=== PATIENT | male | born 1960 | race Two or more races ===

== ENCOUNTER 2017-02-27 20:53 | Emergency (ER) | payer MEDICAID, OTHER ==
[~2017-02-27] VITALS: Ht 165.1 cm; Wt 68.0 kg
--- NOTE | 2017-02-27 21:12 | Emergency Room Report ---
History of Present Illness General Chief Complaint: Abdominal Pain Source: Patient Present Illness HPI This is a 56-year-old male with no past medical history. He presents with chief complaint of left lower quadrant/left flank pain the last 5 days. Radiating from the back to the front. No nausea no vomiting. Pain is 7/10. Nothing made it better. Nothing made it worse. He felt some discomfort and distention in his left side. Denies any urinary complaint. Allergies: Coded Allergies: No Known Allergies (Unverified , 02/27/17) Patient History Past Medical History: none, see triage record, old chart reviewed Past Surgical History: none Pertinent Family History: none Social History: Denies: smoking Immunizations: other Reviewed Nursing Documentation: PMH: Agreed, PSxH: Agreed Nursing Documentation-PMH Past Medical History: No Stated History Review of Systems Eye: Denies: eye pain, blurred vision ENT: Denies: ear pain, nose congestion, throat swelling Respiratory: Denies: cough, shortness of breath Cardiovascular: Denies: chest pain, palpitations Gastrointestinal: Reports: abdominal pain, Denies: diarrhea, nausea, vomiting Musculoskeletal: Denies: back pain, joint pain Skin: Denies: rash Neurological: Denies: headache, numbness Endocrine: Denies: increased thirst, increased urine Hematologic/Lymphatic: Denies: easy bruising All Other Systems: negative except mentioned in HPI Physical Exam Vital Signs Date Time Temp Pulse Resp B/P (MAP) Pulse Ox O2 Delivery O2 Flow Rate FiO2 02/27/17 20:56 97.9 109 16 187/92 97 Room Air vitals with high blood pressure Sp02 EP Interpretation: reviewed, normal General Appearance: well appearing, no apparent distress, alert Head: normocephalic, atraumatic Eyes: bilateral eye PERRL, bilateral eye EOMI ENT: hearing grossly normal, normal pharynx Neck: full range of motion, supple, no meningismus Respiratory: chest non-tender, lungs clear, normal breath sounds Cardiovascular #1: regular rate, rhythm, no murmur Gastrointestinal: normal bowel sounds, non tender, no mass, no organomegaly, no bruit, non-distended Musculoskeletal: back normal, gait/station normal, normal range of motion Psychiatric: mood/affect normal Skin: warm/dry Medical Decision Making Diagnostic Impression: Primary Impression: Abdominal pain of unknown etiology ER Course Patient with abdominal pain. CT scan negative. Labs unremarkable. Pain felt better now. No evidence of acute abdomen or torsion. We'll discharge home. No evidence of urinary tract infection or stone. blood pressure normalized. Lab Results Impression labs unremarkable CT/MRI/US Diagnostic Results CT/MRI/US Diagnostic Results : Imaging Test Ordered: CT abdomen and pelvis Impression negative per radiologist Last Vital Signs Date Time Temp Pulse Resp B/P (MAP) Pulse Ox O2 Delivery O2 Flow Rate FiO2 02/27/17 20:56 97.9 109 16 187/92 97 Room Air Status: improved Disposition: HOME, SELF-CARE Condition: Stable Scripts Ibuprofen* (MOTRIN*) 600 Mg Tablet 600 MG ORAL THREE TIMES A DAY, #30 TAB 0 Refills Prov: MADISYN BOO M.D. 02/27/17 Patient Instructions: Abdominal Pain, Adult Additional Instructions: Followup with your Dr. in 7 days. Return if symptom worsen. MADISYN BOO M.D. Feb 27, 2017 21:12
[2017-02-27 21:15] VITALS: BP 158/88
[2017-02-27] MEDS ORDERED: Ketorolac 30mg Inj IV ONE (21:15)
[2017-02-27 21:33] LABS: BASOPHILS % (AUTO) 1.4 % (0.0-2.0); EOSINOPHILS % (AUTO) 2.7 % (0.0-3.0); MEAN CORPUSCULAR HEMOGLOBIN 31.6 PG (27.0-31.0); MEAN CORPUSCULAR HGB CONC 33.8 G/DL (32.0-36.0); MEAN CORPUSCULAR VOLUME 94 FL (80-99); MEAN PLATELET VOLUME 7.2 FL (6.5-10.1); MONOCYTES % (AUTO) 8.1 % (1.0-10.0); NEUTROPHILS % (AUTO) 41.9 % (45.0-75.0); PLATELET COUNT 298 K/UL (150-450); RED BLOOD COUNT 4.98 M/UL (4.70-6.10); RED CELL DISTRIBUTION WIDTH 11.9 % (11.6-14.8); WHITE BLOOD COUNT 6.9 K/UL (4.8-10.8)
[2017-02-27 21:34] LABS: APPEARANCE,URINE CLEAR; KETONES,URINE NEGATIVE (NEGATIVE); LEUKOCYTE ESTERASE ,URINE NEGATIVE (NEGATIVE); NITRITE,URINE NEGATIVE (NEGATIVE); PH,URINE 5 (4.5-8.0); PROTEIN,URINE NEGATIVE (NEGATIVE); UROBILINOGEN,URINE NORMAL MG/DL (0.0-1.0)
[2017-02-27 21:53] LABS: ANION GAP 8 mmol/L (5-15); CALCIUM 9.1 MG/DL (8.5-10.1); CARBON DIOXIDE 27 MMOL/L (21-32); CHLORIDE 106 MMOL/L (98-107); CREATININE 1.4 MG/DL (0.55-1.30); GLOMERULAR FILTRATION RATE 52.4 mL/min (>60); POTASSIUM 3.7 MMOL/L (3.5-5.1); SODIUM 141 MMOL/L (136-145)
[2017-02-27 21:57] LABS: ALANINE AMINOTRANSFERASE 75 U/L (12-78); ASPARTATE AMINO TRANSFERASE 51 U/L (15-37); LIPASE 171 U/L (73-393); TOTAL PROTEIN 7.7 G/DL (6.4-8.2)
[2017-02-27 22:20] VITALS: BP 136/81
[2017-02-27] MEDS ORDERED: IBUPROFEN600 MG ORAL (22:56)
[2017-02-27 23:05] VITALS: BP 136/81
--- NOTE | 2017-02-28 10:15 | Diagnostic Imaging Report ---
Indication: Abdominal pain Technique: Spiral acquisitions obtained through the abdomen and pelvis. No oral contrast utilized, per emergency room physician request No IV contrast utilized, per emergency room physician request.. Multiplanar reconstructions were generated. Total dose length product 787 mGycm. CTDIvol(s) 14 mGy. Dose reduction achieved using automated exposure control Comparison: None Findings: The appendix is normal. There is colonic diverticulosis. No evidence of diverticulitis. No small bowel distention. Distal esophagus is unremarkable. The stomach is filled with food. The duodenum is unremarkable. No free or loculated intraperitoneal air or fluid is evident. There are small bilateral inguinal hernias which contain only fat Lack of IV contrast limits assessment of the solid organs. The gallbladder is nondistended. The liver is mildly hypoattenuating, consistent with mild fatty change. No gross focal abnormality. The pancreas, spleen, adrenals are unremarkable. There is a 2 mm calculus in the lower pole of the right renal collecting system. There is a 2 mm left lower pole parenchymal calculus as well as a 2 mm left upper pole intrarenal calculus. No ureteral calculi, hydronephrosis, or hydroureter. A 4 mm calcification projects in the nondependent dome of the bladder. The prostate is mildly enlarged, contains some calcifications. No pelvic mass or adenopathy. No retroperitoneal or mesenteric mass or adenopathy. The included lung bases demonstrate minimal dependent/compressive atelectasis. The heart is borderline enlarged. The bones are unremarkable except for mild degenerative changes of the lumbar spine Impression: No acute abnormality Nonobstructive bilateral renal calculi Calcification in the dome of the bladder, probably an in situ calcification related to the urachal remnant, could also represent previously passed ureteral calculus Mild fatty liver Prostatomegaly Diverticulosis Cardiomegaly Incidental findings as noted, including dependent pulmonary parenchymal atelectatic changes, degenerative spondylosis This agrees with the preliminary interpretation provided overnight by [facility] teleradiology service. The CT scanner at [facility] is accredited by the [employer] and the scans are performed using protocols designed to limit radiation exposure to as low as reasonably achievable to attain images of sufficient resolution adequate for diagnostic evaluation.
== END 2017-02-27 23:05 | disposition home or self-care (01) ==
LOC: EMR 21:21
DX: N20.0 Calculus of kidney (principal); K76.0 Fatty (change of) liver, not elsewhere classified; K57.30 Diverticulosis of large intestine without perforation or abscess without bleeding; I51.7 Cardiomegaly; N40.0 Benign prostatic hyperplasia without lower urinary tract symptoms
CPT/HCPCS: 36415; 74176; 80053; 81003; 83690; 85025; 96361; 96374; 99284; J1885

== ENCOUNTER 2018-05-16 09:20 | Emergency (ER) | payer SELFPAY ==
[~2018-05-16] VITALS: Ht 162.6 cm; Wt 81.6 kg
[~2018-05-16 09:20] MED LIST: IBUPROFEN600 MG ORAL
[2018-05-16] MEDS ORDERED: NKM (09:36)
--- NOTE | 2018-05-16 09:42 | NUR ---
ED Nurse Note: Pt came into the ER w/ w/ complaints of abdominal pain x 2 weeks. Pt rated the pain a 9/10. Non radiating. Pt is also complaining of rt toe swelling digit 2 and 3. Pt has intermittent swelling of the toes. A + O x4. Ambulatory. Skin warm to touch.
[2018-05-16 09:46] VITALS: BP 160/80
--- NOTE | 2018-05-16 09:56 | Emergency Room Report ---
History of Present Illness General Chief Complaint: Abdominal Pain Source: Patient Present Illness HPI Patient presents with complaints of right upper quadrant and right flank pain Ongoing for the past 2 weeks Also has some pain to the right mid lower abdomen denies any chest pain or shortness of breath denies any vomiting reports that the patient's right large toe and second toe also appeared somewhat swollen to her Denies any other neck pain or photophobia denies any recent trauma Allergies: Coded Allergies: No Known Allergies (Unverified , 05/16/18) Patient History Past Medical History: see triage record Pertinent Family History: none Reviewed Nursing Documentation: PMH: Agreed; PSxH: Agreed Nursing Documentation-PMH Past Medical History: No Stated History Review of Systems All Other Systems: negative except mentioned in HPI Physical Exam Vital Signs Date Time Temp Pulse Resp B/P (MAP) Pulse Ox O2 Delivery O2 Flow Rate FiO2 05/16/18 09:31 98.2 77 16 158/80 97 Room Air 05/16/18 09:46 98 Sp02 EP Interpretation: reviewed, normal General Appearance: well appearing, no apparent distress Head: normocephalic, atraumatic Eyes: bilateral eye PERRL, bilateral eye EOMI ENT: hearing grossly normal, normal pharynx, TMs + canals normal, uvula midline Neck: full range of motion, supple, no meningismus, no bony tend Respiratory: lungs clear, normal breath sounds, no rhonchi, no respiratory distress, no retraction, no accessory muscle use Cardiovascular #1: normal peripheral pulses, regular rate, rhythm, no edema, no gallop, no JVD, no murmur Gastrointestinal: normal bowel sounds, non tender, soft, no mass, no organomegaly, non-distended, no guarding, no hernia, no pulsatile mass, no rebound Genitourinary: no CVA tenderness Musculoskeletal: normal inspection - I cannot notice any swelling to the feet or toes Neurologic: oriented x3, responsive, 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, motor strength/ tone normal, sensory intact Psychiatric: mood/affect normal Skin: normal color, no rash, warm/dry, palpation normal Lymphatic: normal inspection, no adenopathy Medical Decision Making Diagnostic Impression: Primary Impression: Arthralgia Additional Impressions: Flank pain Fatty liver ER Course With the history exam and presentation, multiple differentials considered, including but not limited to appendicitis, gastritis, cholecystitis, diverticulitis Patient's blood work is at benign levels CT imaging shows several different findings which include worsening imaging of the liver Also arthritic changes in the spine Patient is provided a copy of the imaging And at this time is stable for close outpatient follow-up Labs Test 05/16/18 10:00 White Blood Count 6.6 K/UL (4.8-10.8) Red Blood Count 5.12 M/UL (4.70-6.10) Hemoglobin 15.9 G/DL (14.2-18.0) Hematocrit 47.8 % (42.0-52.0) Mean Corpuscular Volume 93 FL (80-99) Mean Corpuscular Hemoglobin 31.0 PG (27.0-31.0) Mean Corpuscular Hemoglobin Concent 33.2 G/DL (32.0-36.0) Red Cell Distribution Width 12.0 % (11.6-14.8) Platelet Count 171 K/UL (150-450) Mean Platelet Volume 9.1 FL (6.5-10.1) Neutrophils (%) (Auto) 46.9 % (45.0-75.0) Lymphocytes (%) (Auto) 43.4 % (20.0-45.0) Monocytes (%) (Auto) 6.1 % (1.0-10.0) Eosinophils (%) (Auto) 2.0 % (0.0-3.0) Basophils (%) (Auto) 1.6 % (0.0-2.0) Urine Color Pale yellow Urine Appearance Clear Urine pH 5 (4.5-8.0) Urine Specific [place] 1.020 (1.005-1.035) Urine Protein Negative (NEGATIVE) Urine Glucose (UA) Negative (NEGATIVE) Urine Ketones Negative (NEGATIVE) Urine Blood Negative (NEGATIVE) Urine Nitrite Negative (NEGATIVE) Urine Bilirubin Negative (NEGATIVE) Urine Urobilinogen Normal MG/DL (0.0-1.0) Urine Leukocyte Esterase Negative (NEGATIVE) Sodium Level 146 MMOL/L (136-145) Potassium Level 3.1 MMOL/L (3.5-5.1) Chloride Level 114 MMOL/L (98-107) Carbon Dioxide Level 24 MMOL/L (21-32) Anion Gap 8 mmol/L (5-15) Blood Urea Nitrogen 12 mg/dL (7-18) Creatinine 0.7 MG/DL (0.55-1.30) Estimat Glomerular Filtration Rate > 60 mL/min (>60) Glucose Level 77 MG/DL (74-106) Calcium Level 6.3 MG/DL (8.5-10.1) Total Bilirubin 0.2 MG/DL (0.2-1.0) Aspartate Amino Transf (AST/SGOT) 38 U/L (15-37) Alanine Aminotransferase (ALT/SGPT) 67 U/L (12-78) Alkaline Phosphatase 83 U/L (46-116) Total Creatine Kinase 131 U/L (26-308) Creatine Kinase MB 0.7 NG/ML (0.0-3.6) Creatine Kinase MB Relative Index 0.5 Troponin I 0.000 ng/mL (0.000-0.056) Total Protein 5.8 G/DL (6.4-8.2) Albumin 2.5 G/DL (3.4-5.0) Globulin 3.3 g/dL Albumin/Globulin Ratio 0.8 (1.0-2.7) Lipase 110 U/L (73-393) Rhythm Strip Diag. Results EP Interpretation: yes Rate: 60 Rhythm: NSR, no PVC's, no ectopy CT/MRI/US Diagnostic Results CT/MRI/US Diagnostic Results : Impression CT abdomen pelvisImpression: Limited assessment of the GI tract, due to lack of enteric contrast demonstration No definite acute process Fatty liver, appearing progressive since prior exam of 02/27/2017 Subcentimeter liver low-attenuation renal lesions, too small to characterize, most likely benign simple cortical cysts. No further follow-up necessary Incidental findings as noted, including mild degenerative spondylosis, posterior pulmonary atelectatic changes, small fat-containing bilateral inguinal hernias, bladder dome mural calcification Last Vital Signs Date Time Temp Pulse Resp B/P (MAP) Pulse Ox O2 Delivery O2 Flow Rate FiO2 05/16/18 09:46 98.2 98 18 160/80 98 Room Air 05/16/18 09:46 98 Status: improved Disposition: HOME, SELF-CARE Condition: Improved Scripts Tramadol Hcl* (ULTRAM*) 50 Mg Tablet 50 MG ORAL Q12HR PRN for For Pain, #12 TAB 0 Refills Prov: Warner Hopkins DO 2/19/19 Additional Instructions: Patient is provided with the discharge instructions notified to follow up with primary doctor in the next 2-3 days otherwise return to the er with any worsening symptoms. Please note that this report is being documented using [email or web address] technology. This can lead to erroneous entry secondary to incorrect interpretation by the dictating instrument. Warner Hopkins DO May 16, 2018 09:56
[2018-05-16] MEDS ORDERED: Isovue-300 100ml vial INJ PRN (10:00)
[2018-05-16 10:12] LABS: BASOPHILS % (AUTO) 1.6 % (0.0-2.0); HEMATOCRIT 47.8 % (42.0-52.0); HEMOGLOBIN 15.9 G/DL (14.2-18.0); LYMPHOCYTES % (AUTO) 43.4 % (20.0-45.0); MEAN CORPUSCULAR VOLUME 93 FL (80-99); MONOCYTES % (AUTO) 6.1 % (1.0-10.0); NEUTROPHILS % (AUTO) 46.9 % (45.0-75.0); PLATELET COUNT 171 K/UL (150-450); RED BLOOD COUNT 5.12 M/UL (4.70-6.10); WHITE BLOOD COUNT 6.6 K/UL (4.8-10.8)
[2018-05-16 10:16] LABS: APPEARANCE,URINE CLEAR; BILIRUBIN, URINE NEGATIVE (NEGATIVE); COLOR,URINE PALE YELLOW; GLUCOSE, URINE (UA) NEGATIVE (NEGATIVE); KETONES,URINE NEGATIVE (NEGATIVE); LEUKOCYTE ESTERASE ,URINE NEGATIVE (NEGATIVE); NITRITE,URINE NEGATIVE (NEGATIVE); PH,URINE 5 (4.5-8.0); PROTEIN,URINE NEGATIVE (NEGATIVE); UROBILINOGEN,URINE NORMAL MG/DL (0.0-1.0)
[2018-05-16 10:45] LABS: ANION GAP 8 mmol/L (5-15); BLOOD UREA NITROGEN 12 mg/dL (7-18); CALCIUM 6.3 MG/DL (8.5-10.1); CARBON DIOXIDE 24 MMOL/L (21-32); CHLORIDE 114 MMOL/L (98-107); CREATININE 0.7 MG/DL (0.55-1.30); POTASSIUM 3.1 MMOL/L (3.5-5.1); SODIUM 146 MMOL/L (136-145)
[2018-05-16 11:00] LABS: ALANINE AMINOTRANSFERASE 67 U/L (12-78); ALBUMIN 2.5 G/DL (3.4-5.0); ALBUMIN/GLOBULIN RATIO 0.8 (1.0-2.7); ALKALINE PHOSPHATASE 83 U/L (46-116); ASPARTATE AMINO TRANSFERASE 38 U/L (15-37); BILIRUBIN,TOTAL 0.2 MG/DL (0.2-1.0); CKMB 0.7 NG/ML (0.0-3.6); CREATINE KINASE 131 U/L (26-308)
--- NOTE | 2018-05-16 11:06 | NUR ---
ED Nurse Note: Pt went down to CT.
--- NOTE | 2018-05-16 11:28 | NUR ---
ED Nurse Note: Pt back from CT.
--- NOTE | 2018-05-16 12:05 | Diagnostic Imaging Report ---
Clinical Indication: Right upper quadrant pain in right flank pain Technique: No oral contrast utilized, per emergency room physician request IV administration nonionic contrast. Venous phase spiral acquisition obtained through the abdomen and pelvis. Multiplanar reconstructions were generated. Total dose length product 900.08 mGycm. CTDIvol(s) 16.38 mGy. Dose reduction achieved using automated exposure control Comparison: 02/27/2017 Findings: Lack of enteric contrast limits assessment of the GI tract. The appendix is normal. There is colonic diverticulosis. No evidence of diverticulitis. No small bowel distention. No free or loculated intraperitoneal gas or fluid is evident. The distal esophagus, stomach, duodenum are unremarkable. Small bilateral inguinal hernias containing only fat are incidentally noted. The liver is diffusely hypoattenuating, even more so than previously, consistent with diffuse fatty change. The gallbladder is unremarkable. No biliary ductal dilatation. The pancreas, spleen, adrenals are all unremarkable. Previously demonstrated small renal calyceal calculi are not evident currently, probably obscured by the contrast within the collecting systems on the current study. Subcentimeter low-attenuation lesions are demonstrated, visible on the current contrast infused exam, most likely representing benign simple cyst but too small to characterize. No hydronephrosis or hydroureter or ureteral calculi demonstrated.. A calcification is again seen intramural within the dome of the bladder. The bladder is otherwise unremarkable. No pelvic mass or adenopathy. No retroperitoneal or mesenteric mass or adenopathy. Included lung bases demonstrate posterior dependent atelectatic changes. Mild degenerative proliferative changes of the lumbar spine are noted. Impression: Limited assessment of the GI tract, due to lack of enteric contrast demonstration No definite acute process Fatty liver, appearing progressive since prior exam of 02/27/2017 Subcentimeter liver low-attenuation renal lesions, too small to characterize, most likely benign simple cortical cysts. No further follow-up necessary Incidental findings as noted, including mild degenerative spondylosis, posterior pulmonary atelectatic changes, small fat-containing bilateral inguinal hernias, bladder dome mural calcification The CT scanner at [facility] is accredited by the [employer] and the scans are performed using protocols designed to limit radiation exposure to as low as reasonably achievable to attain images of sufficient resolution adequate for diagnostic evaluation.
[2018-05-16] MEDS ORDERED: TRAMADOL HCL50 MG ORAL (12:38)
[2018-05-16 13:04] VITALS: BP 141/86
--- NOTE | 2018-05-16 13:05 | NUR ---
ER DISCHARGE NOTE: Patient is cleared to be discharged per ERMD, pt is aox4, on room air, with stable vital signs. pt was given dc and prescription instructions, pt was able to verbalize understanding, pt id band and iv site removed without complications. pt is able to ambulate with steady gait. pt took all belongings.
--- NOTE | 2018-05-17 16:06 | Cardiology Report ---
APPROVED REPORT EKG Measurement Heart [id number] Normal sinus rhythm Cannot rule out Anterior infarct, age undetermined Abnormal ECG
== END 2018-05-16 13:06 | disposition home or self-care (01) ==
LOC: EMR 09:56
DX: R10.11 Right upper quadrant pain (principal); K76.0 Fatty (change of) liver, not elsewhere classified; M79.674 Pain in right toe(s); M25.50 Pain in unspecified joint
CPT/HCPCS: 36415; 74177; 80053; 81003; 82550; 82553; 83690; 84484; 85025; 93005; 96360; 99284; Q9967